=== PATIENT | female | born 2000 | race Caucasian/White ===

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

== ENCOUNTER 2022-01-11 21:47 | Emergency (ER) | payer OTHER ==
[~2022-01-11] VITALS: Ht 162.6 cm; Wt 81.6 kg
[2022-01-11 22:25] VITALS: BP 113/70
--- NOTE | 2022-01-12 01:40 | NUR ---
Patient ambulated to bed 10.
--- NOTE | 2022-01-12 02:25 | NUR ---
Dr. Altman examining patient.
[2022-01-12] MEDS ORDERED: ACETAMINOPHEN EXTRA STRENGTH 500 MG TAB PO ONE (02:35)
--- NOTE | 2022-01-12 02:42 | NUR ---
PT TAKEN TO RADIOLOGY
--- NOTE | 2022-01-12 02:57 | NUR ---
PT RETURN FROM RADIOLOGY
[2022-01-12] MEDS ORDERED: ACET-10509 PO (04:05)
[2022-01-12 04:24] VITALS: BP 110/70
--- NOTE | 2022-01-12 04:24 | NUR ---
Patient discharged with v/s stable. Written and verbal after care instructions given and explained. Patient alert, oriented and verbalized understanding of instructions. Ambulatory with steady gait. All questions addressed prior to discharge. ID band removed. Patient advised to follow up with PMD. Rx of TYLENOL EXTRA STRENGTH given. Patient educated on indication of medication including possible reaction and side effects. Opportunity to ask questions provided and answered. VSS, A/OX4, UNLABORED BREATHING, AMBULATORY, AND CALM DEMEANOR.
== END 2022-01-12 04:24 | disposition home or self-care (01) ==
LOC: MED 21:47
DX: S39.012A Strain of muscle, fascia and tendon of lower back, initial encounter (principal); S66.811A Strain of other specified muscles, fascia and tendons at wrist and hand level, right hand, initial encounter; S20.211A Contusion of right front wall of thorax, initial encounter; Z79.899 Other long term (current) drug therapy; V43.52XA Car driver injured in collision with other type car in traffic accident, initial encounter; Y93.89 Activity, other specified; Y92.89 Other specified places as the place of occurrence of the external cause; Y99.8 Other external cause status
CPT/HCPCS: 71100; 99283